=== PATIENT | male | born 1950 | race Asian ===

== ENCOUNTER 2017-02-28 10:23 | Day surgery (SDC) | payer MEDICARE, BC ==
[~2017-02-28] VITALS: Ht 157.5 cm; Wt 63.0 kg
[~2017-02-28 10:23] MED LIST: CLAR10 PO; CLOP75TA33 PO; METO25TA6 PO; ROSU40TA PO
[2017-02-28] MEDS ORDERED: FLUT9.9S (11:05)
[2017-02-28] MEDS ORDERED: LACTATED RINGERS 1,000 ML IV SCH (11:15)
[2017-02-28 11:25] LABS: BASOPHILS % 0.8 % (0.0-2.0); EOSINOPHILS % 2.4 % (0.0-5.0); HEMATOCRIT. 44.1 % (42.0-52.0); HEMOGLOBIN. 14.9 g/dL (14.0-18.0); LYMPHOCYTES % 12.6 % (20.0-50.0); MEAN CORPUSCULAR HEMOGLOBIN 28.9 pg (28.0-32.0); MEAN CORPUSCULAR HGB CONC 33.9 g/dL (31.0-37.0); MEAN CORPUSCULAR VOLUME 85.3 fL (80.0-94.0); MEAN PLATELET VOLUME 7.1 fl (7.4-10.4); MONOCYTES % 7.5 % (2.0-8.0); NEUTROPHILS % 76.7 % (40.0-76.0); PLATELET 210 x1000/uL (130-400); RED BLOOD CELL COUNT 5.17 mill/uL (4.7-6.1); RED CELL DISTRIBUTION WIDTH 15.2 % (11.6-14.6); WHITE BLOOD COUNT 6.1 x1000/uL (4.5-11.0)
[2017-02-28 11:31] LABS: CHLORIDE 104 mEq/L (98-107); INDEX HEMOLYSI 1 (1-3); INDEX ICTERIC 1 (1-4); INDEX LIPEMIC 1 (1-3)
[2017-02-28 11:33] LABS: ANION GAP 9; CALCIUM 8.7 mg/dL (8.5-10.1); CARBON DIOXIDE 34 mEq/L (21-32); UREA NITROGEN BLOOD 8 mg/dL (7-21)
[2017-02-28 11:34] LABS: INR 1.1; PARTIAL THROMBOPLASTIN TIME 28.2 sec (24.0-34.0)
[2017-02-28 11:38] LABS: eGFR > 60 mL/min (>60)
[2017-02-28] MEDS ORDERED: SIMETHICONE 40 MG/0.6 ML 30ML ONE (11:54)
[2017-02-28] MEDS ORDERED: SODIUM CHLORIDE 0.9% 10ML VIAL ONE (11:54)
[2017-02-28] MEDS ORDERED: IOHEXOL-300 100 ML BOTTLE ONE (12:01)
[2017-02-28] MEDS ORDERED: MIDAZOLAM HCL 2 MG/2 ML VIAL ONE (12:01)
[2017-02-28] MEDS ORDERED: LIDOCAINE HCL 1% 20ML VIAL (Pyxis) INJ ONE (12:07)
[2017-02-28] MEDS ORDERED: SUCCINYLCHOLINE CHLORIDE 200MG/10ML VIAL IV ONE (12:07)
[2017-02-28] MEDS ORDERED: FENTANYL CITRATE/PF 50MCG/ML 2ML VIAL ONE (12:07)
[2017-02-28] MEDS ORDERED: PROPOFOL 200MG/20ML VIAL IV ONE (12:07)
[2017-02-28] MEDS ORDERED: CEFAZOLIN SODIUM 1000MG/VIAL ONE (12:23)
[2017-02-28] MEDS ORDERED: ONDANSETRON HCL 4MG/2ML VIAL ONE (12:32)
[2017-02-28] MEDS ORDERED: DEXAMETHASONE 4MG/ML 1ML VIAL ONE (12:32)
[2017-02-28] MEDS ORDERED: ONDANSETRON HCL 4MG/2ML VIAL IV PRN (13:15)
[2017-02-28] MEDS ORDERED: HYDROMORPHONE HCL/PF 2MG/ML CPJ IV PRN (13:15)
== END 2017-02-28 15:00 | disposition home or self-care (01) ==
LOC: OR 10:23
PROVIDERS: ATTEND Internal Medicine Gastroenterology
DX: T85.590A Other mechanical complication of bile duct prosthesis, initial encounter (principal); I10 Essential (primary) hypertension; E78.5 Hyperlipidemia, unspecified; I25.10 Atherosclerotic heart disease of native coronary artery without angina pectoris; M19.90 Unspecified osteoarthritis, unspecified site
CPT/HCPCS: 36415; 43262; 43274; 74328; 80048; 85025; 85610; 85730; 93005; A4216; C1726; C1769; J0330; J0690; J1100; J2250; J2405; J3010; J3490; J7120; Q9967; J2704

== ENCOUNTER 2017-06-13 07:49 | Day surgery (SDC) | payer MEDICARE, BC ==
[~2017-06-13] VITALS: Ht 157.5 cm; Wt 61.2 kg
[~2017-06-13 07:49] MED LIST changes: +FLUT9.9S
[2017-06-13 08:57] LABS: BASOPHILS % 0.5 % (0.0-2.0); EOSINOPHILS % 4.1 % (0.0-5.0); HEMATOCRIT. 48.2 % (42.0-52.0); HEMOGLOBIN. 16.3 g/dL (14.0-18.0); LYMPHOCYTES % 13.3 % (20.0-50.0); MEAN CORPUSCULAR HEMOGLOBIN 29.1 pg (28.0-32.0); MEAN CORPUSCULAR VOLUME 86.1 fL (80.0-94.0); MEAN PLATELET VOLUME 8.2 fl (7.4-10.4); MONOCYTES % 7.3 % (2.0-8.0); NEUTROPHILS % 74.8 % (40.0-76.0); PLATELET 141 x1000/uL (130-400); RED CELL DISTRIBUTION WIDTH 14.8 % (11.6-14.6)
[2017-06-13 09:01] LABS: CHLORIDE 107 mEq/L (98-107)
[2017-06-13 09:03] LABS: PARTIAL THROMBOPLASTIN TIME 29.4 sec (23.4-31.0); PROTHROMBIN TIME 10.4 sec (9.4-11.6)
[2017-06-13] MEDS ORDERED: IOHEXOL-300 100 ML BOTTLE ONE (09:04)
[2017-06-13 09:08] LABS: CARBON DIOXIDE 32 mEq/L (21-32)
[2017-06-13] MEDS ORDERED: LACTATED RINGERS 1,000 ML IV SCH (09:45)
[2017-06-13] MEDS ORDERED: MIDAZOLAM HCL 2 MG/2 ML VIAL ONE (10:20)
[2017-06-13] MEDS ORDERED: FENTANYL CITRATE/PF 50MCG/ML 2ML VIAL ONE (10:20)
[2017-06-13] MEDS ORDERED: PROPOFOL 200MG/20ML VIAL IV ONE (10:24)
[2017-06-13] MEDS ORDERED: SUCCINYLCHOLINE CHLORIDE 200MG/10ML VIAL IV ONE (10:24)
[2017-06-13] MEDS ORDERED: SIMETHICONE 40 MG/0.6 ML 30ML ONE (10:32)
[2017-06-13] MEDS ORDERED: CEFAZOLIN SODIUM 1000MG/VIAL ONE (10:39)
[2017-06-13] MEDS ORDERED: DEXAMETHASONE 4MG/ML 1ML VIAL ONE (10:57)
[2017-06-13] MEDS ORDERED: ONDANSETRON HCL 4MG/2ML VIAL ONE (10:57)
[2017-06-13] MEDS ORDERED: SODIUM CHLORIDE 0.9% 1,000 ML IV SCH (11:20)
[2017-06-13] MEDS ORDERED: ONDANSETRON HCL 4MG/2ML VIAL IV PRN (11:30)
[2017-06-13] MEDS ORDERED: MORPHINE SULFATE 2 MG/ML CPJ (NOT FOR IM USE) IV PRN (11:30)
== END 2017-06-13 13:30 | disposition home or self-care (01) ==
LOC: OR 07:49
PROVIDERS: ATTEND Internal Medicine Gastroenterology
DX: K83.8 Other specified diseases of biliary tract (principal); I10 Essential (primary) hypertension; E78.5 Hyperlipidemia, unspecified; M19.90 Unspecified osteoarthritis, unspecified site; I25.10 Atherosclerotic heart disease of native coronary artery without angina pectoris; Z88.0 Allergy status to penicillin; Z90.49 Acquired absence of other specified parts of digestive tract; I25.2 Old myocardial infarction
CPT/HCPCS: 36415; 43262; 43275; 74328; 80048; 85025; 85610; 85730; 88300; 93005; J0330; J0690; J1100; J2250; J2405; J3010; J7120; Q9967; J2704